=== PATIENT | female | born 1990 | race Caucasian/White ===

== ENCOUNTER 2017-04-23 09:18 | Emergency (ER) | payer OTHER ==
[~2017-04-23] VITALS: Ht 162.6 cm; Wt 61.5 kg
[2017-04-23 09:18] VITALS: BP 143/70; PULSE 76; RESP 15; TEMP 98.7; O2SAT 98
--- NOTE | 2017-04-23 10:17 | PD ---
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 Seen by Provider: 10:17 Travel History International Travel<30 days: No Contact w/Intl Traveler<30days: No Traveled to known affect area: No History of Present Illness HPI 26 YO F PFSH Past Medical History ?: Not LMP: 03/28/17 Allergies-Medications (Allergen,Severity, Reaction): Coded Allergies: No Known Allergies (Unverified , 04/23/17) Reported Meds & Prescriptions Reported Meds & Active Scripts Active No Active Prescriptions or Reported Medications Data Data Last Documented VS Vital Signs Date Time Temp Pulse Resp B/P Pulse Ox O2 Delivery O2 Flow Rate FiO2 04/23/17 09:18 98.7 76 15 143/70 98 MDM Scripts No Active Prescriptions or Reported Meds Leilani Gallardo Apr 23, 2017 10:17
[2017-04-23] MEDS ORDERED: LIDOCAINE HCL 1% 50 ML VIAL IM ONE (10:45)
[2017-04-23] MEDS ORDERED: AZITHROMYCIN PWD FOR SUSP 1 GM PACKET PO ONE (10:45)
--- NOTE | 2017-04-23 10:48 | PD ---
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 Patient reports that she is sexually active with multiple partners, she does use contraceptives intermittently. Patient reports concern for possible STD's as she has had them in the past. Reports history of chlamydia in the past. Patient denies any fevers or chills, denies any abdominal pain. Patient with no other complaints. PFSH Past Medical History Diminished Hearing: No Genitourinary: Yes (STD HX ) Tetanus Vaccination: > 5 Years Influenza Vaccination: No ?: Not LMP: 03/28/17 : 0 Past Surgical History Surgical History: No Previous Surgery Social History Alcohol Use: No (PT DENIES) Tobacco Use: Yes (1 PACK PER DAY) Substance Use: No (PT DENIES) Allergies-Medications (Allergen,Severity, Reaction): Coded Allergies: No Known Allergies (Unverified , 04/23/17) Reported Meds & Prescriptions Reported Meds & Active Scripts Active No Active Prescriptions or Reported Medications Review of Systems General / Constitutional: No: Fever Eyes: No: Visual changes HENT: No: Headaches Cardiovascular: No: Chest Pain or Discomfort Respiratory: No: Shortness of Breath Gastrointestinal: No: Abdominal Pain Genitourinary: Positive: Discharge, No: Dysuria Musculoskeletal: No: Pain Skin: No Rash Neurologic: No: Weakness Psychiatric: No: Depression Endocrine: No: Polydipsia Hematologic/Lymphatic: No: Easy Bruising Physical Exam Narrative GENERAL: NAD, nontoxic SKIN: Focused skin assessment warm/dry. HEAD: Atraumatic. Normocephalic. EYES: Pupils equal and round. No scleral icterus. No injection or drainage. ENT: No nasal bleeding or discharge. Mucous membranes pink and moist. NECK: Trachea midline. No JVD. CARDIOVASCULAR: Regular rate and rhythm. No murmur appreciated. RESPIRATORY: No accessory muscle use. Clear to auscultation. Breath sounds equal bilaterally. GASTROINTESTINAL: Abdomen soft, non-tender, nondistended. Hepatic and splenic margins not palpable. : Pelvic exam performed with RN at bedside, patient with moderate amount of thick yellowish to whitish discharge, no cmt or adnexal tenderness MUSCULOSKELETAL: No obvious deformities. No clubbing. No cyanosis. No edema. NEUROLOGICAL: Awake and alert. No obvious cranial nerve deficits. Motor grossly within normal limits. Normal speech. PSYCHIATRIC: Appropriate mood and affect; insight and judgment normal. Data Data Last Documented VS Vital Signs Date Time Temp Pulse Resp B/P Pulse Ox O2 Delivery O2 Flow Rate FiO2 04/23/17 10:18 17 04/23/17 09:18 98.7 76 143/70 98 Orders Gc And Chlamydia Pcr (04/23/17 10:25) Wet Prep Profile (04/23/17 10:25) Urinalysis - C+S If Indicated (04/23/17 10:25) Ed Urine Pregnancytest Poc (04/23/17 10:25) Azithromycin Powd Pack (Zithromax Powd P (04/23/17 10:45) Lidocaine 1% Inj (50 Ml) (Xylocaine 1% I (04/23/17 10:45) Ceftriaxone Inj (Rocephin Inj) (04/23/17 10:45) Diphenhydramine (Benadryl) (04/23/17 11:45) Labs Laboratory Tests Test 04/23/17 10:49 Urine Color LIGHT-YELLOW Urine Turbidity HAZY Urine pH 6.0 Urine Specific [place] 1.017 Urine Protein NEG mg/dL Urine Glucose (UA) NEG mg/dL Urine Ketones NEG mg/dL Urine Occult Blood NEG Urine Nitrite NEG Urine Bilirubin NEG Urine Urobilinogen LESS THAN 2.0 MG/DL Urine Leukocyte Esterase LARGE Urine RBC LESS THAN 1 /hpf Urine WBC 1 /hpf Urine Squamous Epithelial 2 /hpf Cells Urine Bacteria RARE /hpf Microscopic Urinalysis Comment CULT NOT INDICATED Clue Cells (Wet Prep) NONE SEEN Vaginal Trichomonas (Wet Prep) NONE SEEN Vaginal Yeast (Wet Prep) NONE SEEN MDM Medical Decision Making Medical Screen Exam Complete: Yes Emergency Medical Condition: Yes Interpretation(s) Vital Signs Date Time Temp Pulse Resp B/P Pulse Ox O2 Delivery O2 Flow Rate FiO2 04/23/17 10:18 17 04/23/17 09:18 98.7 76 15 143/70 98 Differential Diagnosis Differential includes oma yeast infection, cervicitis, UTI Narrative Course 26-year-old female who presents to emergency room with complaints of vaginal discharge for the past 4 days. Patient with no abdominal pain, nausea vomiting or diarrhea. Patient with no fevers or chills. A pelvic exam was performed, patient with moderate amount of yellow to whitish thick yellow vaginal discharge. Patient requesting treated for possible gonorrhea/chlamydia. She understands that she'll need to follow-up with cultures from today. Understands that if cultures are positive, all SEXUAL partners will need to be treated. Laboratory Tests Test 04/23/17 10:49 Urine Color LIGHT-YELLOW (YELLW/STRAW) Urine Turbidity HAZY (CLEAR) Urine pH 6.0 (5.0-8.5) Urine Specific [place] 1.017 (1.002-1.035) Urine Protein NEG mg/dL (NEG-TRACE) Urine Glucose (UA) NEG mg/dL (NEG) Urine Ketones NEG mg/dL (NEG) Urine Occult Blood NEG (NEG) Urine Nitrite NEG (NEG) Urine Bilirubin NEG (NEG) Urine Urobilinogen LESS THAN 2.0 MG/DL (LESS THAN 2.0) Urine Leukocyte Esterase LARGE (NEG) Urine RBC LESS THAN 1 /hpf (0-3) Urine WBC 1 /hpf (0-5) Urine Squamous Epithelial 2 /hpf (0-5) Cells Urine Bacteria RARE /hpf (NONE) Microscopic Urinalysis Comment CULT NOT INDICATED Clue Cells (Wet Prep) NONE SEEN (NONE) Vaginal Trichomonas (Wet Prep) NONE SEEN (NONE) Vaginal Yeast (Wet Prep) NONE SEEN (NONE) Patient with no obvious yeast on vaginal exam, she does have [place] thick yellow to whitish vaginal discharge. Patient currently treated for gonorrhea/chlamydia , will also treat for possible yeast infection. patient will follow up with cultures from today. She understands that all sexual parties will need to be treated if cultures are positive Diagnosis Primary Impression: Cervicitis Additional Impression: Yeast vaginitis Patient Instructions: General Instructions Additional Instructions: Please follow-up with CULTURES from today. If cultures are positive, all sexual partners will need to be treated Please follow up with your primary care doctor as well as your collection systems consultant Return to ER as needed Med/Other Pt SpecificInfo: Prescription(s) given Scripts Fluconazole (Diflucan)150 Mg [id number] Mg PO ONCE #2 TAB Ref 0 Prov:Liss Ronquillo DO 04/23/17 Disposition: 01 DISCHARGE HOME Condition: Stable Liss Ronquillo DO Apr 23, 2017 10:48
[2017-04-23 11:27] LABS: BACTERIA, URINE RARE /hpf; BLOOD, URINE NEG (NEG); COMMENT (UR) CULT NOT INDICATED; CULTURE IF INDICATED CULT NOT INDICATED; GLUCOSE,URINE NEG (NEG); KETONE, URINE NEG (NEG); NITRITE,URINE NEG (NEG); SQUAMOUS EPITHELIAL CELL URINE 2 /hpf (0-5); URINE COLOR LIGHT-YELLOW (YELLW/STRAW)
[2017-04-23] MEDS ORDERED: diphenhydrAMINE HCL 50 MG CAP PO ONE (11:45)
[2017-04-23] MEDS ORDERED: DIFL150T PO (12:06)
[2017-04-23 12:10] VITALS: BP 123/81; TEMP 97.8
[2017-04-23 13:55] LABS: CHLAMYDIA PCR NOT DETECTED (NOT DETECT); NEISSERIA PCR NOT DETECTED (NOT DETECT)
== END 2017-04-23 12:10 | disposition home or self-care (01) ==
LOC: NEPD 09:18
DX: N72 Inflammatory disease of cervix uteri (principal); B37.3 Candidiasis of vulva and vagina; F17.290 Nicotine dependence, other tobacco product, uncomplicated
CPT/HCPCS: 81001; 84703; 87210; 87491; 87591; 96372; 99284; J0696